=== PATIENT | female | born 1955 | race Caucasian/White ===

== ENCOUNTER → 2020-01-28 14:53 | Outpatient (CLI) | payer MEDICARE, SELFPAY ==
--- NOTE | ~2020-01-28 | MM_ITS ---
EXAMINATION: MM screening javier BI w vargas HISTORY: Screening mammogram TECHNIQUE: Craniocaudal and mediolateral oblique 3-D tomosynthesis images were obtained and synthetic 2-D images were generated. CAD analysis was submitted and interpreted. COMPARISON: 07/03/2018, 06/15/2017, 06/07/2016 bilateral digital screening mammogram examinations BREAST PARENCHYMAL COMPOSITION: There are scattered areas of fibroglandular density. FINDINGS: There is a circumscribed 3 mm opacity in the lower mid right breast at 6:00 position 6 cm d eep to the nipple. Targeted ultrasound is recommended. Otherwise there is no evidence of suspicious mass, calcification, or architectural distortion to sugg est malignancy in either breast. There has been no other suspicious interval change. IMPRESSION: 1. 3 mm circumscribed opacity at 6:00, right breast 2. Targeted right breast 6:00 ultrasound is recommended. BI-RADS Category 0: Incomplete: Needs additional imaging evaluation. Reviewed, dictated and finalized at location A. O AGENT
== END ==
PROVIDERS: PCP Family Medicine; Visit Provider Nurse Practitioner
DX: Z12.31 Encounter for screening mammogram for malignant neoplasm of breast (principal); R92.8 Other abnormal and inconclusive findings on diagnostic imaging of breast
CPT/HCPCS: 77063; 77067

== ENCOUNTER → 2020-02-25 08:12 | Outpatient (CLI) | payer MEDICARE, SELFPAY ==
--- NOTE | ~2020-02-25 | US_ITS ---
US breast RT limited 02/25/2020 08:46 Indication: Follow-up right breast mass Procedure: High-resolution Limited ultrasound of the right breast Comparison: Mammogram dated 01/28/2020 Findings: At 6:00, 4 cm from the nipple in the area of mammographic abnormality there is a 3 mm cyst. No suspicious masses to suggest malignancy. Impression: 1: Right breast cyst measuring 3 mm at 6:00 position, 4 cm from the nipple. No sonographic evidence f or malignancy. Routine yearly screening mammogram and regular clinical breast examination are recommended. BI-RADS CATEGORY 2 - BENIGN FINDINGS Reviewed, dictated and finalized at location A. T SPEC Impression: 1: Right breast cyst measuring 3 mm at 6:00 position, 4 cm from the nipple. No sonographic evidence for malignancy. Routine yearly screening mammogram and regular clinical breast examination are recommended. BI-RADS CATEGORY 2 - BENIGN FINDINGS
== END ==
PROVIDERS: PCP Family Medicine; Visit Provider Obstetrics & Gynecology Gynecology
DX: R92.8 Other abnormal and inconclusive findings on diagnostic imaging of breast (principal); N60.01 Solitary cyst of right breast
CPT/HCPCS: 76642

== ENCOUNTER → 2021-03-10 10:11 | Outpatient (CLI) | payer MEDICARE, SELFPAY ==
[2021-03-10 15:15] LABS: Influenza Control Positive
[2021-03-10 21:02] LABS: SARS-CoV-2 RNA PCR Negative
== END ==
PROVIDERS: PCP Family Medicine; Visit Provider Physician Assistant
DX: R05.9 Cough, unspecified (principal); Z20.822 Contact with and (suspected) exposure to COVID-19
CPT/HCPCS: 87804; C9803; U0003; U0005

== ENCOUNTER → 2021-03-23 10:31 | Outpatient (CLI) | payer MEDICARE, SELFPAY ==
--- NOTE | ~2021-03-23 | MM_ITS ---
EXAMINATION: MM screening javier BI w vargas HISTORY: Screening mammogram, family history of breast cancer in her mother. TECHNIQUE: Craniocaudal and mediolateral oblique 3-D tomosynthesis images were obtained and synthetic 2-D images were generated. CAD analysis was submitted and interpreted. COMPARISON: 01/28/2020, 07/03/2018, 06/15/2017 BREAST PARENCHYMAL COMPOSITION: There are scattered areas of fibroglandular density. FINDINGS: There is no evidence of suspicious mass, calcification, or architectural distortion to sugg est malignancy in either breast. There has been no suspicious interval change. IMPRESSION: 1. No mammographic evidence of malignancy. 2. Recommend routine screening mammography in one year. BI-RADS Category 1: Negative Reviewed, dictated and finalized at location A. GRATION ASSOCIATE
== END ==
PROVIDERS: PCP Family Medicine; Visit Provider Nurse Practitioner
DX: Z12.31 Encounter for screening mammogram for malignant neoplasm of breast (principal)
CPT/HCPCS: 77063; 77067

== ENCOUNTER → 2022-11-10 11:37 | Outpatient (CLI) | payer MEDICARE, SELFPAY ==
--- NOTE | ~2022-11-10 | DEXA_ITS ---
Bone Density Report Name: NASIR MEDELLIN Age: 67 Sex: Female Ethnicity: White Date of : 1955 Indication: postmenopausal; screening for osteoporosis; Referring Provider: TAZ, SHAVON Study: Bone densitometry was performed. Exam Date: November 10, 2022 Accession number: [id number] Bone Density: Region BMD T-score Z-score Classification AP Spine (L1, L3, L4) 1.107 0.5 2.5 Normal Femoral Neck (Left) 0.866 0.2 1.8 Normal Total Hip (Left) 1.045 0.8 2.2 Normal Femoral Neck (Right) 0.806 -0.4 1.3 Normal Total Hip (Right) 0.996 0.4 1.8 Normal Total Hip Mean 1.021 0.6 2.0 Normal World Health Organization criteria for BMD impression classify patients as: Normal (T-score at or above -1.0), Osteopenia (T-score between -1.0 and -2.5), or Osteoporosis (T-score at or below -2.5). 10-year Fracture Risk: FRAX not reported because: All T-scores for Spine Total, Hip Total, Femoral Neck at or above -1.0 Previous Exams: Region Exam Age BMD T-score BMD Change BMD Change Date g/cm2 vs Baseline vs Previous AP Spine(L1, L3, L4) 11/10/2022 67 1.107 0.5 0.115 0.067* 07/03/2018 62 1.040 -0.1 0.049 0.012 12/11/2014 59 1.029 -0.2 0.037* 0.037* 10/19/2010 55 0.992 -0.6 Total Hip(Left) 11/10/2022 67 1.045 0.8 0.056 0.031* 07/03/2018 62 1.015 0.6 0.025 -0.005 12/11/2014 59 1.019 0.6 0.030* 0.030* 10/19/2010 55 0.989 0.4 Total Hip(Right) 11/10/2022 67 0.996 0.4 0.011 0.014 07/03/2018 62 0.982 0.3 -0.002 -0.037 12/11/2014 59 1.019 0.6 0.034* 0.034* 10/19/2010 55 0.985 0.3 *Denotes significance at 95% confidence level, LSC for AP Spine = 0.022 g/cm2, LSC for Total Hip = 0.027 g/cm2 Clinical Information Provided by Patient: Patient maximum height was 64 Menopause Age: 44 Drinks caffeinated beverages Onset of menses at age 11 Number of children 2 Impression: The patient has normal bone mass. No significant bone loss was observed. Discussion: BONE DENSITY IS ABOVE THE MINIMUM DESIRABLE LEVEL AT ALL SKELETAL SITES TESTED. This patient?s bone mineral density is above the minimum desirable level (T-score -1.0 or better) at all sites measured. The patient should follow a healthful lifestyle (good nutrition with adequate calcium
--- NOTE | ~2022-11-10 | MM_ITS ---
EXAMINATION: MM screening javier BI w vargas HISTORY: Screening mammogram TECHNIQUE: Craniocaudal and mediolateral oblique 3-D tomosynthesis images were obtained and synthetic 2-D images were generated. CAD analysis was submitted and interpreted. COMPARISON: 03/19/2021 bilateral screening mammogram 02/25/2020 limited right breast ultrasound: 3 mm cyst at 6:00 4 cm from nipple: Benign 01/28/2020, 07/03/2018 bilateral screening mammogram examinations BREAST PARENCHYMAL COMPOSITION: There are scattered areas of fibroglandular density. FINDINGS: Stable small circumscribed opacity at 6:00 position, demonstrated to be a small cyst on mckenzie or ultrasound examination There is no evidence of suspicious mass, calcification, or architectural di stortion to suggest malignancy in either breast. There has been no suspicious interval change. IMPRESSION: 1. No mammographic evidence of malignancy. 2. Recommend routine screening mammography in one year. BI-RADS Category 2: Benign finding(s). Reviewed, dictated and finalized at location A.
== END ==
PROVIDERS: PCP Family Medicine; Visit Provider Nurse Practitioner
DX: Z12.31 Encounter for screening mammogram for malignant neoplasm of breast (principal); Z78.0 Asymptomatic menopausal state
CPT/HCPCS: 77063; 77067; 77080

== ENCOUNTER 2023-03-18 09:34 | Outpatient (CLI) | payer MEDICARE, SELFPAY ==
--- NOTE | ~2023-03-18 | CT_ITS ---
EXAMINATION: CT abdomen pelvis wo con DATE: 03/18/2023 10:30 INDICATION: Hematuria TECHNIQUE: Computed tomography (CT) of the abdomen and pelvis was performed without intravenous contr ast. Automated exposure control and iterative reconstruction technique were employed. Exam dose: 126 0.04 mGy-cm total exam DLP. COMPARISON: None. FINDINGS: The lung bases are clear. Normal heart size. Coronary artery calcification. No pericardial or pleural effusion. Diffuse hepatic steatosis. No hepatic space-occupying mass lesion is detected. There is an approximat orlando 2.5 mm calculus in the neck of the gallbladder. No gallbladder wall thickening or pericholecystic fluid or fat stranding. No bile duct or pancreatic duct dilatation. No pancreatic mass lesion or jeremias cification. There are calcified splenic granulomas. Normal splenic size. Normal morphology of the adrenal glands. Possible subtle pinpoint nonobstructing right renal calculus. Mild focal bulging along the inferolateral aspect of the right kidney may be due to pulmonary prema, l ess likely renal mass lesion. Consider further evaluation. Approximately 2.9 cm exophytic mixed fat and soft tissue mass at the posterior upper pole of the left kidney gland, likely angiomyolipoma. There are 2 small exophytic probable left renal cysts. Exophytic approximately 3 cm x 2.4 cm hypoattenuating lesion of the posterolateral inferior tip of th e left kidney with attenuation of approximately 6-10 Hounsfield units, probably a cyst. CT examination with IV contrast material or MR may be beneficial for more definitive evaluation of billy th kidneys, particularly given the history of hematuria. No ureteral calculi or hydroureteronephrosis. Probable minimally calcified right uterine fibroid. The uterus, adnexal areas and urinary bladder oth erwise appear unremarkable. There is atherosclerotic calcification but normal caliber of the abdominal aorta. No intraperitoneal or retroperitoneal or pelvic mass lesion or adenopathy or ascites is detected. Normal appendix. Mild left colon diverticulosis; no CT evidence of diverticulitis. No bowel obstruction, bowel wall th ickening, pneumatosis or intraperitoneal free air. Small fat-containing umbilical hernia. Multilevel degenerative disc disease of the lumbar and lumbosacral spine particularly severe at L2-3 and L5-S1, with prominent posterior spurring and mild retrolisthesis at the latter interspace. IMPRESSION: Dromedary hump versus subtle mass of inferolateral right kidney Partially exophytic 2.4 x 3 cm inferior pole left renal mass with attenuation of fluid, most likely a cyst. A couple of additional much smaller exophytic left renal cysts are noted. Posterior exophytic mixed soft tissue and fatty lesion of the upper pole of the left kidney, likely a n exophytic angiomyolipoma Consider CT with IV contrast material or MR examination for more definitive evaluation of the kidneys , considering the history of hematuria Possible pinpoint subtle nonobstructing right renal calculus Hepatic steatosis Cholelithiasis Normal appendix Mild left colon diverticulosis Reviewed, dictated and finalized at Location A. Reviewed, dictated and finalized at location B. BORER IMPRESSION: Dromedary hump versus subtle mass of inferolateral right kidney Partially exophytic 2.4 x 3 cm inferior pole left renal mass with attenuation o f fluid, most likely a cyst. A couple of additional much smaller exophytic left renal cysts are noted. Posterior exophytic mixed soft tissue and fatty lesion of the upper pole of the left kidney, likely an exophytic angiomyolipoma Consider CT with IV contrast material or MR examination for more definitive jill luation of the kidneys, considering the history of hematuria Possible pinpoint subtle nonobstructing right
== END 2023-03-18 09:35 | disposition home or self-care (01) ==
PROVIDERS: PCP Family Medicine; Visit Provider Family Medicine
DX: R31.9 Hematuria, unspecified (principal); N28.89 Other specified disorders of kidney and ureter; K76.0 Fatty (change of) liver, not elsewhere classified; K80.20 Calculus of gallbladder without cholecystitis without obstruction; K57.92 Diverticulitis of intestine, part unspecified, without perforation or abscess without bleeding
CPT/HCPCS: 74176

== ENCOUNTER 2023-04-12 12:32 | Outpatient (CLI) | payer MEDICARE, SELFPAY ==
--- NOTE | ~2023-04-12 | MR_ITS ---
EXAMINATION: MR renal wo/w con DATE: 04/12/2023 13:55 INDICATION: Hematuria, unspecified. TECHNIQUE: Magnetic resonance imaging (MRI) of the abdomen was performed without and with 19 mL Multi Lacey intravenous contrast. COMPARISON: CT abdomen and pelvis 03/18/2023 FINDINGS: There is diffuse hepatic steatosis. There is a 5 mm cyst in the liver. The gallbladder, spleen, pancr eas, and adrenal glands are normal. There are cysts in the kidneys measuring up to 2.5 cm on the left . There is a 2.8 cm mass of left kidney containing fat, consistent with an angiomyolipoma. There is a small sliding hiatal hernia. There are no dilated loops of bowel. There are no pathologically enlarg ed lymph nodes. There is no free intraperitoneal fluid. IMPRESSION: 1. 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 2. Diffuse hepatic steatosis. Reviewed, dictated and finalized at location A. SHOP ATTENDANT
== END 2023-04-12 12:33 | disposition home or self-care (01) ==
PROVIDERS: PCP Family Medicine; Visit Provider Physician Assistant
DX: N28.89 Other specified disorders of kidney and ureter (principal); K76.0 Fatty (change of) liver, not elsewhere classified; R31.9 Hematuria, unspecified
CPT/HCPCS: 74183; A9577

== ENCOUNTER 2023-11-14 08:22 | Outpatient (CLI) | payer MEDICARE, SELFPAY ==
--- NOTE | ~2023-11-14 | US_ITS ---
EXAMINATION: US retroperitoneal comp DATE: 11/14/2023 09:42 INDICATION: Angiomyolipoma of the left kidney TECHNIQUE: Multiple ultrasound grayscale images of the kidneys were obtained. COMPARISON: MRI dated 04/12/[address] dated 03/18/2023 FINDINGS: The right kidney measures 10.9 x 5.2 x 4.9 cm. The left kidney measures 10.4 x 5.6 x 4.8 cm. The kidn eys demonstrate normal echogenicity. There are couple anechoic cysts at the left kidney the larger me asuring 3.2 cm and the smaller 9 mm. There is also an exophytic 3.9 cm hyperechoic mass at the rn ambulatory ior mid to upper left kidney corresponding to the large macroscopic fat containing angiomyolipoma. Th ere is no hydronephrosis in either kidney. No stones identified. The bladder is normal with bilateral ureteral jets visualized on color Doppler. IMPRESSION: 1. 3.2 cm left renal angiomyolipoma along with a couple 3.9 cm and 0.9 cm left renal cyst. Reviewed, dictated and finalized at location B.
== END 2023-11-14 08:23 | disposition home or self-care (01) ==
PROVIDERS: PCP Family Medicine; Visit Provider Urology
DX: D17.71 Benign lipomatous neoplasm of kidney (principal); N28.1 Cyst of kidney, acquired
CPT/HCPCS: 76770

== ENCOUNTER 2024-03-01 10:42 | Outpatient (CLI) | payer MEDICARE, SELFPAY ==
--- NOTE | ~2024-03-01 | MM_ITS ---
EXAMINATION: MM screening javier BI w vargas HISTORY: Screening mammogram, family history of breast cancer in her mother. TECHNIQUE: Craniocaudal and mediolateral oblique 3-D tomosynthesis images were obtained and synthetic 2-D images were generated. CAD analysis was submitted and interpreted. COMPARISON: 11/10/2022, 03/23/2021, 01/28/2020 BREAST PARENCHYMAL COMPOSITION:Not Dense. The breasts are almost entirely fatty FINDINGS: No suspicious mass, calcification, or architectural distortion are identified in either tony ast to suggest malignancy. There has been no suspicious interval change. IMPRESSION: No mammographic evidence of malignancy. Recommend routine screening mammography in one year. BI-RADS Category 1: Negative Reviewed, dictated and finalized at location . ED GLASS CROSSCUTTER
== END 2024-03-01 10:43 | disposition home or self-care (01) ==
LOC: MICIMG 10:43
PROVIDERS: PCP Family Medicine; Visit Provider Obstetrics & Gynecology Gynecology
DX: Z12.31 Encounter for screening mammogram for malignant neoplasm of breast (principal)
CPT/HCPCS: 77063; 77067

== ENCOUNTER 2024-05-16 00:26 | Day surgery (SDC) | payer MEDICARE, SELFPAY ==
[2024-05-10 12:00] VITALS: BMI 37.0
--- OUTSIDE RECORDS SUMMARY | 2024-05-16 00:31 | XMS_ITS | Continuity of Care Document ---
Author Organization [facility] Address [id number] [place] [address] [address] [place] [address] Phone Care Team Providers Care Costumed Character Entertainer Name Role Phone Misa Martinez Unavailable Unavailable Advance Directives Directive Yes / No Effective Date File Name No Information Encounters Encounter Description Practice Location Reason(s) For Visit Diagnoses Date Provider Providers Copied on Encounter Formerly [facility], [address], [place], [place], [id number], [place] tel:[phone] SEC [facility] [place] No Information 4-200 0 Michelle Bynum. [address] , [address], [place], [address], [place]. tel:[phone] Family History Family Member Type Diagnosis Age At Onset No Information Payers Payer name Insurance type Covered democrat ID Authoriza tion(s) No Information Social History Type Description Quantity Date Captured Comments Sex Female Smoking Status No Information Chief Complaint And Reason For Visit No Information Reason For Referral Reason For Referral No Information History Of Present Illness Encounter Date Complaint History Of Prese nt Illness No Information Functional Status Date Functional Assessmen t No Information Instructions Date Instruction Additional Infor mation No Information Assessments Type Assessment Date No Information Patient Care Teams Name Effective Dates (start - stop) Status Members No Information
[2024-05-16 07:12] VITALS: BP 151/81; PULSE 91; RESP 16; TEMP 36.3; O2SAT 97; BMI 36.3
[2024-05-16] MEDS: LACTATED RINGERS 1,000 ML 150 ML IV CONT (07:20)
--- NOTE | 2024-05-16 07:54 | P.PNAN_ITS ---
Anes - Initial Pre Proc Eval Procedure: Operation Date: 05/16/24 08:30 Proposed Procedures p Colonoscopy - Conor Butts MD Date/Time: 05/16/24 07:54 Surgeon: Conor Butts MD Pre Op Diagnosis: Personal hx of polyps Patient Data Age: 68 Gender: F Height: 1.63 m Weight: 96 kg Last Vital Signs Temp 97.4 F L 05/16/24 07:12 Pulse 91 05/16/24 07:12 Resp 16 05/16/24 07:12 BP 151/81 H 05/16/24 07:12 Pulse Ox 97 05/16/24 07:12 O2 Del Method Room Air 05/16/24 07:12 Allergies Allergy/AdvReac Type Severity Reaction Status Date / Time c[facility]lor ([facility]) Allergy Intermediate Unknown Verified 05/16/24 07:10 Penicillins Allergy Mild Unknown Verified 05/16/24 07:10 Home Medications ?Medication ?Instructions ?Recorded ?Confirmed ?Type esomeprazole magnesium 20 mg 20 mg PO DAILY #90 caps 02/23/19 05/16/24 Rx capsule,delayed release (Nexium) losartan 100 mg tablet 100 mg PO DAILY #90 tabs 04/18/24 05/16/24 Rx metoprolol succinate 50 mg 50 mg PO DAILY #90 tabs 04/18/24 05/16/24 Rx tablet,extended release 24 hr (Toprol XL) rosuvastatin 10 mg tablet 10 mg PO DAILY #90 tabs 04/18/24 05/16/24 Rx METAMUCIL FIBER AND PROBIOTIC 3 gummy PO DAILY PRN constipation 05/10/24 05/16/24 History cetirizine 10 mg tablet (Zyrtec) 10 mg PO DAILY 05/10/24 05/16/24 History ibuprofen-diphenhydramine citrate 2 cap PO HS 05/10/24 05/16/24 History 200 mg-38 mg tablet (Advil PM) melatonin 5 mg capsule 5 mg PO HS 05/10/24 05/16/24 History Patient hx anesthesia problems: none Family hx anesthesia problems: none Results Review: All pre-operative results and documents have been reviewed as part of the pre- operative evaluation. [facility] Past Medical History Medical History OAB (overactive bladder) Hyperlipidemia Colon polyps Chronic GERD Anxiety Essential hypertension IFG (impaired fasting glucose) Family History Family History Mother Family history of malignant neoplasm of breast in first degree relative Sibling Diabetes mellitus Social History Social History Smoking status: Never smoker Second hand tobacco smoke exposure: Yes Alcohol intake: current Drinks per week: 2 Alcohol use details: rare Substance use: never Substance use type: does not use Living arrangements: with family Occupation/Education: retired Gender identity (if verbalized by the patient): Female Anes - Eval Final PreProcedure Day of Procedure 05/16/24 07:54 Patient weight: obese Heart: regular rate and rhythm Lungs: clear to auscultation Airway: Mallampati scale class II Neurological: alert and oriented Last oral intake: >/= 8 hours ASA classification: III Emergent: no Anesthetic plan: proceed Anesthesia type and monitoring: general GIVS and standard monitoring Results Review: All pre-operative results and documents have been reviewed as part of the pre- operative evaluation. Informed Consent: The patient's anesthetic plan and its attendant risks and benefits were discusse d with the patient/family/POA. Questions were solicited and answers provided to the satisfaction of the patient/family/POA.
--- NOTE | 2024-05-16 08:14 | P.HP_ITS ---
History of Present Illness History of Present Illness Consent: Risks, benefits, and alternatives have been discussed and questions answered. Patient agrees to proceed with procedure. Chief complaint: Personal hx of polyps Narrative: Caro Fair is a 68 year old female with colon polyp in 2019 Review of Systems Review of Systems: All systems reviewed & are unremarkable except as noted in HPI and below PMFSH Past Medical History Medical History OAB (overactive bladder) Hyperlipidemia Colon polyps Chronic GERD Anxiety Essential hypertension IFG (impaired fasting glucose) Family History Family History Mother Family history of malignant neoplasm of breast in first degree relative Sibling Diabetes mellitus Social History Social History Smoking status: Never smoker Second hand tobacco smoke exposure: Yes Alcohol intake: current Drinks per week: 2 Alcohol use details: rare Substance use: never Substance use type: does not use Living arrangements: with family Occupation/Education: retired Gender identity (if verbalized by the patient): Female Meds Home Medications and Allergies Home Medications ?Medication ?Instructions ?Recorded ?Confirmed ?Type esomeprazole magnesium 20 mg 20 mg PO DAILY #90 caps 02/23/19 05/16/24 Rx capsule,delayed release (Nexium) losartan 100 mg tablet 100 mg PO DAILY #90 tabs 04/18/24 05/16/24 Rx metoprolol succinate 50 mg 50 mg PO DAILY #90 tabs 04/18/24 05/16/24 Rx tablet,extended release 24 hr (Toprol XL) rosuvastatin 10 mg tablet 10 mg PO DAILY #90 tabs 04/18/24 05/16/24 Rx METAMUCIL FIBER AND PROBIOTIC 3 gummy PO DAILY PRN constipation 05/10/24 05/16/24 History cetirizine 10 mg tablet (Zyrtec) 10 mg PO DAILY 05/10/24 05/16/24 History ibuprofen-diphenhydramine citrate 2 cap PO HS 05/10/24 05/16/24 History 200 mg-38 mg tablet (Advil PM) melatonin 5 mg capsule 5 mg PO HS 05/10/24 05/16/24 History Allergies Allergy/AdvReac Type Severity Reaction Status Date / Time cefaclor (From [facility]) Allergy Intermediate Unknown Verified 05/16/24 07:10 Penicillins Allergy Mild Unknown Verified 05/16/24 07:10 Vital Signs Vital Signs - 24 hr 05/16/24 07:12 Temperature 97.4 F L Pulse Rate 91 Respiratory Rate 16 Blood Pressure 151/81 H Pulse Oximetry 97 Oxygen Delivery Room Air Exam Const: General: comfortable and no acute distress HENMT: Face/Nose/Sinus: Normal nares present Eyes: General: appearance normal, both eyes and all related structures Neck: Neck: no JVD Resp: Auscultation: clear to auscultation bilaterally Cardio: Rate: regular rate Rhythm: regular rhythm GI: Inspection: non-distended GI Palp: Yes Soft to palpation Skin: General skin exam: normal color Neuro: General: gait normal Speech: normal speech Extrem: General: normal to inspection Psych: Mental Status: mental status grossly normal Assessment and Plan Assessment and plan (1) Colon polyps: Code(s): K63.5 - Polyp of colon Status: Acute Assessment and Plan: colonoscopy
[2024-05-16 08:32] VITALS: BP 105/70; PULSE 90; RESP 22; O2SAT 94
[2024-05-16 08:42] VITALS: BP 114/76; PULSE 81; RESP 20; O2SAT 94
[2024-05-16 08:52] VITALS: BP 108/62; PULSE 83; RESP 19; O2SAT 95
== END 2024-05-16 08:57 | disposition home or self-care (01) ==
PROVIDERS: PCP Family Medicine; Referring Provider Family Medicine; Visit Provider Internal Medicine Gastroenterology
PROC: 0DJD8ZZ Inspection of Lower Intestinal Tract, Via Natural or Artificial Opening Endoscopic (ICD-10-PCS; CPT 45378; principal; 2024-05-16 08:30)
DX: Z12.11 Encounter for screening for malignant neoplasm of colon (principal); D12.0 Benign neoplasm of cecum; D12.3 Benign neoplasm of transverse colon; D12.4 Benign neoplasm of descending colon; K63.5 Polyp of colon; K64.8 Other hemorrhoids; K57.30 Diverticulosis of large intestine without perforation or abscess without bleeding; E78.5 Hyperlipidemia, unspecified; I10 Essential (primary) hypertension; N32.81 Overactive bladder; K21.9 Gastro-esophageal reflux disease without esophagitis; F41.9 Anxiety disorder, unspecified; R73.01 Impaired fasting glucose; E66.9 Obesity, unspecified; Z68.36 Body mass index [BMI] 36.0-36.9, adult; Z79.1 Long term (current) use of non-steroidal anti-inflammatories (NSAID); Z80.3 Family history of malignant neoplasm of breast
CPT/HCPCS: 45380; 45385; 88305; J2003; J2704; J7120

== ENCOUNTER 2024-07-23 08:35 | Emergency (ER) | payer MEDICARE, SELFPAY ==
[2024-07-23] VITALS (9 sets, daily range): BP systolic 124–149; BP diastolic 61–85; PULSE 78–90; RESP 16; TEMP 37.2; O2SAT 94–98
--- NOTE | ~2024-07-23 | XR_ITS ---
CHEST RADIOGRAPH, PA AND LATERAL CLINICAL HISTORY: right chest wall pain . COMPARISON: 02/15/2019 TECHNIQUE: PA and lateral views of the chest. FINDINGS The cardiomediastinal silhouette is unremarkable. The lungs are clear. IMPRESSION: No focal infiltrate or effusion. Reviewed, dictated and finalized at location A.
--- OUTSIDE RECORDS SUMMARY | 2024-07-23 08:37 | XMS_ITS | Continuity of Care Document ---
Author Organization [facility] Address [address] [place] [address] [address] [place] [address] Phone Care Team Providers Care Civil Engineering Project Manager Name Role Phone Misa Martinez Unavailable Unavailable Advance Directives Directive Yes / No Effective Date File Name No Information Encounters Encounter Description Practice Location Reason(s) For Visit Diagnoses Date Provider Providers Copied on Encounter [facility], [address], [place], [place], [id number], [place] tel:[phone] [facility] [place] [facility] Information 4-200 0 Michelle Bynum. [address] [address] [facility] , [address], [place], [address], [place]. tel:[phone] Family History Family Member Type Diagnosis Age At Onset No Information Payers Payer name Insurance type Covered alliance party ID Authoriza tion(s) No Information Social History [...]
--- OUTSIDE RECORDS SUMMARY | 2024-07-23 09:42 | XMS_ITS | Continuity of Care Document ---
Author Organization [facility] Address [address] [place] [address] [address] [place] [address] Phone Care Team Providers Care Truss Builder Name Role Phone Misa Martinez Unavailable Unavailable Advance Directives Directive Yes / No Effective Date File Name No Information Encounters Encounter Description Practice Location Reason(s) For Visit Diagnoses Date Provider Providers Copied on Encounter [facility], [address], [place], [place], [id number], [place] tel:[phone] [facility] [place] No Information 4-200 0 Michelle Bynum. [address] [facility] , [address], [place], [address], [place]. tel:[phone] Family History Family Member Type Diagnosis Age At Onset No Information Payers Payer name Insurance type Covered green party ID Authoriza tion(s) No Information Social [...]
--- NOTE | 2024-07-23 10:34 | ECG_ITS ---
Test Date: 2024-07-23 11:12:47 Measurements Intervals [place] Rate: 87 P: 36 AL: 136 QRS: 1 QRSD: 97 T: 23 QT: 350 QTc: 421 Interpretive Statements SINUS RHYTHM WITH OCCASIONAL VENTRICULAR PREMATURE COMPLEXES No previous ECG available for comparison Electronically Signed On 07-23-2024 15:04:22 CDT by Darvin Doe M.D.
[2024-07-23] MEDS: CYCLOBENZAPRINE HCL 10 MG TABLET PO (11:02)
[2024-07-23] MEDS: HYDROcodone/acetaminophen (*CRX) 5-325 MG TABLET 1 TAB PO (11:03)
--- NOTE | 2024-07-23 11:10 | ED_ITS ---
HPI - General Adult General Chief complaint: Unspecified Stated complaint: pain in shoulder/neck/ribs after pulling weeds Time Seen by Provider: 07/23/24 09:33 History of Present Illness HPI narrative: 68-year-old female presents to the emergency department for evaluation for right lateral neck right shoulder and right-sided chest pain that she attributes to muscular strain secondary to wheezing and her fibromyalgia. Patient states on she had been doing some weeding and afterwards noticed some muscle tremor. Patient denied any anterior chest pain denies associated shortness of breath. Patient felt that she did strain her muscles while she was working. Patient denies any falls but was concerned maybe she fractured a rib. Patient did not take anything for pain control for this. Related Data Home Medications ?Medication ?Instructions ?Recorded ?Confirmed ?Last Taken ?Type METAMUCIL FIBER AND PROBIOTIC 3 gummy PO DAILY PRN constipation 05/10/24 05/16/24 05/14/24 History cetirizine 10 mg tablet (Zyrtec) 10 mg PO DAILY 05/10/24 05/16/24 05/15/24 History ibuprofen-diphenhydramine citrate 2 cap PO HS 05/10/24 05/16/24 05/15/24 History 200 mg-38 mg tablet (Advil PM) melatonin 5 mg capsule 5 mg PO HS 05/10/24 05/16/24 05/15/24 History Allergies Allergy/AdvReac Type Severity Reaction Status Date / Time cefaclor (From Ceclor) Allergy Intermediate Unknown Verified 07/23/24 09:27 Penicillins Allergy Mild Unknown Verified 07/23/24 09:27 Review of Systems 2 Review of Systems: All systems reviewed & are unremarkable except as noted in HPI and below PMFSH Past Medical History Medical History OAB (overactive bladder) Hyperlipidemia Colon polyps Chronic GERD Anxiety Essential hypertension IFG (impaired fasting glucose) Family History Family History Mother Family history of malignant neoplasm of breast in first degree relative Sibling Diabetes mellitus Social History Social History Smoking status: Never smoker Second hand tobacco smoke exposure: Yes Alcohol intake: current Drinks per week: 2 Alcohol use details: rare Substance use: never Substance use type: does not use Living arrangements: with family Occupation/Education: retired Gender identity (if verbalized by the patient): Female Spiritual care concerns: No Exam 2 Narrative: APPEARANCE: Well appearing, no pain, no distress, well-nourished. HEAD: normocephalic, atraumatic. EYES: PERRLA/EOMI, conjunctivae clear. NOSE: Normal no drainage EARS:TMS clear with good light reflex. THROAT: Pharynx clear, no exudate. NECK: Supple. No adenopathy, no masses. RESPIRATORY: Airway patent, respirations nonlabored. Clear to auscultation bilaterally, no rales, rhonchi, wheezing. CARDIOVASCULAR: Regular rate and rhythm without murmurs rubs or gallops. ABDOMINAL: Soft, nontender, nondistended, normal bowel sounds MUSCULOSKELETAL: Reproducible trapezius tenderness into the cervical portion and into the back. NEURO: Alert. Cranial nerves II through XII intact. Grossly intact SKIN: Warm, dry. Normal Color Course Vital Signs Vital signs: Vital Signs Temperature 99.0 F 07/23/24 08:43 Pulse Rate 90 07/23/24 08:43 Respiratory Rate 16 07/23/24 08:43 Blood Pressure 149/82 H 07/23/24 08:43 Pulse Oximetry 98 07/23/24 08:43 Temperature 99.0 F 07/23/24 08:43 Pulse Rate 78 07/23/24 12:15 Respiratory Rate 16 07/23/24 12:15 Blood Pressure 130/84 07/23/24 12:15 Pulse Oximetry 96 07/23/24 12:15 Medical Decision Making [facility] Narrative Medical decision making narrative: 68-year-old female presented emergency department for evaluation for right-sided chest wall pain. Patient is currently afebrile with a leukocytosis of 12.1 hemoglobin of 14.5. Patient has no acute abnormalities on her CMP. EKG shows normal sinus rhythm with no evidence acute STEMI. Patient's chest x-ray shows no acute cardiopulmonary abnormality. Patient does feel improved with treatment. Suspect musculoskeletal etiology for symptoms. Differential Diagnosis Differential Diagnosis: Pneumonia, pneumothorax, ACS, muscle strain, dehydration Vital Signs Vital Signs: Vital Signs Temperature 99.0 F 07/23/24 08:43 Pulse Rate 90 07/23/24 08:43 Respiratory Rate 16 07/23/24 08:43 Blood Pressure 149/82 H 07/23/24 08:43 Pulse Oximetry 98 07/23/24 08:43 Temperature 99.0 F 07/23/24 08:43 Pulse Rate 78 07/23/24 12:15 Respiratory Rate 16 07/23/24 12:15 Blood Pressure 130/84 07/23/24 12:15 Pulse Oximetry 96 07/23/24 12:15 Lab Data Lab results reviewed: Yes I reviewed the patient's lab results. 07/23/24 11:09 07/23/24 11:09 Labs: Lab Results 07/23/24 Range/Units 11:09 WBC 12.1 H (4.5-10.0) K/mm3 RBC 4.65 (4.2-5.4) M/mm3 Hgb 14.5 (12.0-15.0) g/dL Hct 44.5 (37.0-47.0) % MCV 95.7 (80-100) fl MCH 31.2 (26-34) pg MCHC 32.6 (32-36) g/dl RDW 12.8 (11.5-14.5) % Plt Count 278 (150-375) k/mm3 MPV 11.2 H (7.4-10.4) fl Immature Gran % (Auto) 0.5 (0-0.5) % Neut % (Auto) 65.8 (45.5-73.1) % Lymph % (Auto) 21.6 (18.3-44.2) % Sterling % (Auto) 10.8 H (2.6-8.5) % Eos % (Auto) 0.8 (0-4.4) % Baso % (Auto) 0.5 (0.2-1.2) % Lymph # (Auto) 2.62 (0.9-3.2) K/mm3 Sterling # (Auto) 1.3 H (0.1-0.6) K/mm3 Eos # (Auto) 0.1 (0-0.3) K/mm3 Baso # (Auto) 0.1 (0.0-0.1) K/mm3 Abs Immat Gran (auto) 0.06 H (0.00-0.031) K/mm3 Absolute Neuts (auto) 8.0 H (1.3-6.7) K/mm3 Absolute Nucleated RBC 0.000 (0.0-0.012) K/mm3 Nucleated RBC % 0.0 (0.0-0.2) % Sodium 140 (137-145) mmol/L Potassium 3.7 (3.4-5.0) mmol/L Chloride 106 (98-107) mmol/L Carbon Dioxide 28 (22-30) mmol/L Anion Gap 6 (4-12) mmol/L BUN 12 (7-17) mg/dL Creatinine 0.71 (0.7-1.0) mg/dL Estim Creat Clear Calc 73 ml/min Estimated GFR > 60 (59 - ) Glucose 134 H (65-110) mg/dL Calcium 9.1 (8.4-10.2) mg/dL Magnesium 2.2 (1.6-2.3) mg/dL Total Bilirubin 1.2 (0.2-1.3) mg/dL AST 22 (14-36) U/L ALT 24 (6-35) U/L Alkaline Phosphatase 73 (38-126) U/L Total Protein 8.0 (6.3-8.2) g/dL Albumin 4.3 (3.5-5.1) g/dL Imaging Data Radiologist's impression: Impressions Chest X-Ray 07/23/24 11:00 IMPRESSION: No focal infiltrate or effusion. ECG Data EKG #1: EKG Interpretation: normal rate, sinus rhythm, PVCs, non-specific ST changes, normal QT and NL axis Discharge Plan Discharge Clinical Impression: Strain of cervical portion of trapezius muscle Patient Disposition: Home Condition: Stable Instructions: Antibiotic Form Additional Instructions: Ibuprofen for pain control. Tramadol as needed for additional pain control. Flexeril for muscle spasm. Have close follow-up with your primary care physician for additional outpatient cardiac testing. If you have any worsening symptoms then please call or return to the emergency department. Patient Language: Yakut Prescriptions: New cyclobenzaprine 10 mg tablet 10 mg PO BID PRN (Reason: muscle spasm) Qty: 14 0RF tramadol 25 mg tablet 25 mg PO Q6H PRN (Reason: pain) Qty: 14 0RF No Action esomeprazole magnesium [Nexium] 20 mg capsule,delayed release(DR/EC) 20 mg PO DAILY Qty: 90 0RF Advil PM 200-38 mg tablet 2 cap PO HS cetirizine [Zyrtec] 10 mg tablet 10 mg PO DAILY melatonin 5 mg capsule 5 mg PO HS METAMUCIL FIBER AND PROBIOTIC 3 gummy PO DAILY PRN (Reason: constipation) losartan 100 mg tablet 100 mg PO DAILY Qty: 90 2RF rosuvastatin 10 mg tablet 10 mg PO DAILY Qty: 90 2RF metoprolol succinate [Toprol XL] 50 mg tablet extended release 24 hr 50 mg PO DAILY Qty: 90 2RF Follow-up/Referrals: Derrick Holt MD [Primary Care Provider] -
[2024-07-23 11:18] LABS: Basophils Absolute Auto 0.1 K/mm3 (0.0-0.1); Basophils Percent Auto 0.5 % (0.2-1.2); Eosinophils Absolute Auto 0.1 K/mm3 (0-0.3); Eosinophils Percent Auto 0.8 % (0-4.4); Hematocrit 44.5 % (37.0-47.0); Hemoglobin 14.5 g/dL (12.0-15.0); Immature Granulocyte Absolute 0.06 K/mm3 (0.00-0.031); Immature Granulocyte Percent A 0.5 % (0-0.5); Lymphocytes Absolute Auto 2.62 K/mm3 (0.9-3.2); Lymphocytes Percent Auto 21.6 % (18.3-44.2); Mean Corpuscular HGB Conc 32.6 g/dl (32-36); Mean Corpuscular Hemoglobin 31.2 pg (26-34); Mean Corpuscular Volume 95.7 fl (80-100); Mean Platelet Volume 11.2 fl (7.4-10.4); Monocytes Absolute Auto 1.3 K/mm3 (0.1-0.6); Monocytes Percent Auto 10.8 % (2.6-8.5); Neutrophils Percent Auto 65.8 % (45.5-73.1); Platelet Count Result 278 k/mm3 (150-375); Red Blood Count 4.65 M/mm3 (4.2-5.4); Red Cell Distribution Width 12.8 % (11.5-14.5); White Blood Count 12.1 K/mm3 (4.5-10.0)
[2024-07-23 11:28] LABS: Alanine Aminotransferase 24 U/L (6-35); Albumin Level 4.3 g/dL (3.5-5.1); Alkaline Phosphatase 73 U/L (38-126); Anion Gap 6 mmol/L (4-12); Aspartate Amino Transferase 22 U/L (14-36); Bilirubin,Total 1.2 mg/dL (0.2-1.3); Blood Urea Nitrogen 12 mg/dL (7-17); Calcium 9.1 mg/dL (8.4-10.2); Carbon Dioxide 28 mmol/L (22-30); Chloride 106 mmol/L (98-107); Estimated CRCL calculation 73 ml/min; Estimated Glomerular Filt Rate > 60; Glucose 134 mg/dL (65-110); Magnesium 2.2 mg/dL (1.6-2.3); Potassium 3.7 mmol/L (3.4-5.0); Sodium 140 mmol/L (137-145)
== END 2024-07-23 12:29 | disposition home or self-care (01) ==
PROVIDERS: Emergency Provider Emergency Medicine; PCP Family Medicine
DX: S46.819A Strain of other muscles, fascia and tendons at shoulder and upper arm level, unspecified arm, initial encounter (principal); I10 Essential (primary) hypertension; E78.5 Hyperlipidemia, unspecified; K21.9 Gastro-esophageal reflux disease without esophagitis; N32.81 Overactive bladder; M79.7 Fibromyalgia; F41.9 Anxiety disorder, unspecified; Z86.0100 Personal history of colon polyps, unspecified; Z77.22 Contact with and (suspected) exposure to environmental tobacco smoke (acute) (chronic); X50.9XXA Other and unspecified overexertion or strenuous movements or postures, initial encounter; Y93.H2 Activity, gardening and landscaping
CPT/HCPCS: 36415; 71046; 80053; 83735; 85025; 93005; 99283; A9270

== ENCOUNTER 2024-09-14 08:49 | Outpatient (CLI) | payer MEDICARE, SELFPAY ==
--- NOTE | ~2024-09-14 | US_ITS ---
US retroperitoneal comp 09/14/2024 10:50 Procedure: Realtime transabdominal ultrasound of the kidneys and bladder. Indication: Renal angiomyolipoma. Comparison: MRI dated 04/12/2023 and ultrasound dated 11/14/2023 Findings: Right renal echotexture is normal bilaterally without hydronephrosis, contour deforming mas s or renal calculus. There is a 2.9 cm left renal cyst. Laterally in the left kidney there is a hyper echoic mass measuring 3.7 x 3.2 x 3 cm, consistent with known angiomyolipoma. There is a probable non obstructing 4 mm renal stone. The right kidney measures 11 cm and left kidney measures 10.4 cm. Blad ashley within normal limits. 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 2: Probable nonobstructing 4 mm left renal stone. 3, left renal cyst measuring 2.9 cm. Reviewed, dictated and finalized at location A. 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 2: Probable nonobstructing 4 mm left renal stone. 3, left renal cyst measuring 2.9 cm.
--- OUTSIDE RECORDS SUMMARY | 2024-09-14 08:57 | XMS_ITS | Continuity of Care Document ---
Author Organization [facility] Address [id number] [place] [address] [address] [place] [address] Phone Care Team Providers Care Online Journalist Name Role Phone Misa Martinez Unavailable Unavailable Advance Directives Directive Yes / No Effective Date File Name No Information Encounters Encounter Description Practice Location Reason(s) For Visit Diagnoses Date Provider Providers Copied on Encounter formerly [facility], [address], [place], [place], [id number], [place] tel:[phone] [facility] [place] No Information [id number] 0 Michelle Bynum. [address] [facility] , [address], [place], [address], [place]. tel:[phone] Family History Family Member Type Diagnosis Age [...]
== END 2024-09-14 08:50 | disposition home or self-care (01) ==
PROVIDERS: PCP Family Medicine; Visit Provider Urology
DX: D17.71 Benign lipomatous neoplasm of kidney (principal); N28.1 Cyst of kidney, acquired
CPT/HCPCS: 76770